=== PATIENT | female | born 2000 | race African-American/Black ===

== ENCOUNTER 2022-10-09 21:16 | Observation (INO) ==
[2022-10-09] MEDS ORDERED: SODIUM CHLORIDE 0.9% 1000ML 1,000 ML IV SCH (22:30)
--- NOTE | 2022-10-09 22:51 | Emergency Department Note ---
Impression & Plan Ectopic , Abnormal human chorionic gonadotropin (hCG) ED Provider Note CHIEF COMPLAINT: Positive test, negative outpatient ultrasound for IUP HISTORY OF PRESENT ILLNESS: This 22-year-old female patient presents to the emergency department via private vehicle for evaluation after positive outpatient test with no IUP identified on outpatient ultrasound. Georgina holly was at the resource center here in [place] earlier today. She states she had a positive test on Thursday. The patient denies any symptoms including breast tenderness or soreness, fatigue, nausea, vomiting, or others. The patient states that she has not had any abdominal or pelvic cramping or spotting. She states last menstrual period was 08/11/2022 which was normal. She states she did have some abnormal spotting about a month ago, but did not think much of that. Patient does note history of chlamydia in January and states she and her partners were treated. 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 Patient denies any complaints at this time. She does not have any pain, cramping, or bleeding. REVIEW OF SYSTEMS: A 10 system review of systems was performed with positives and pertinent negatives listed in the history of present illness. All other systems were reviewed and are negative. ALLERGIES: None PHYSICAL EXAM: VITALS: Vitals are noted on the nurse's note and reviewed by myself. Vital signs stable. GENERAL: This is a 22-year-old female, in no acute distress, nondiaphoretic, well-developed well-nourished. SKIN: The skin was without rashes, erythema, edema, or bruising. There is no tenting of the skin. Capillary refill less than 2 seconds. HEAD: Normocephalic atraumatic. EYES: Conjunctivae without injection, sclerae without icterus. NECK: Supple without nuchal rigidity. No lymphadenopathy. No JVD. HEART: Regular rate and rhythm without murmurs gallops or rubs. LUNGS: Clear to auscultation bilaterally without wheezes, rales or rhonchi. No retractions or accessory muscle use. ABDOMEN: Positive bowel sounds x 4. Soft, nontender, without masses or organomegaly. Villegas sign negative. No guarding or rebound tenderness. No CVA tenderness bilaterally. MUSCULOSKELETAL: No muscle atrophy, erythema, or edema noted. Full range of motion without joint tenderness in all extremities. No tenderness to palpation. Normal gait. Strength 5/5 throughout. NEURO: Patient was alert and oriented to person place and time. No focal neurological deficits. An order was placed for continuous equipment monitor phototypesetting. The monitor showed a sinus tachycardia at a ventricular rate of 101 bpm, per my interpretation. EMERGENCY DEPARTMENT COURSE: The patient was seen and evaluated as above. The patient is not experiencing any abdominal pain, cramping, or vaginal bleeding. She is also not experiencing any symptoms. IV access was obtained, labs drawn. Labs were reviewed. There is no leukocytosis, anemia, thrombocytopenia. INR 1.0. Renal, hepatic function and electrolytes without significant abnormality. hCG 413. Urinalysis negative for blood. Does appear to be contaminated specimen with greater than 50,000 epithelial cells and 1+ bacteria. Ultrasound was completed and reviewed by myself and radiologist as noted. I did speak with Dr. Coelho, radiologist who reviewed the study. She is concerned for a left ruptured ectopic . Given this finding, I did contact Dr. Garcia, unassigned [employer]ER on-call. She did come to evaluate the patient. She will admit the patient to her service for monitoring. Unclear whether this is truly a ruptured ectopic given the patient's lack of pain and bleeding as well as normal H&H. Please see her dictation regarding ongoing management, care, and final disposition of this patient. Differential diagnosis includes intrauterine , ectopic , molar , ovarian torsion, ovarian cyst, malignancy, among others I attest that I have personally reviewed the patient's current medication list. Patient was found to have normal blood pressure on screening and does not requir e follow-up. The chart was completed utilizing [employer] Speech voice recognition software. Grammatical errors, random word insertions, pronoun errors, and incomplete sentences are an occasional consequence of this system due to software limitations, ambient noise, and hardware issues. Any formal questions or concerns about the content, text, or information contained within the body of this dictation should be directly addressed to the provider for clarification. Past Med/Surg History Medical History Chlamydia Social History Smoking Status: Current some day smoker Preferred Language: Bel[place]an Feels Safe at Home: Yes Allergies Allergies Allergy/AdvReac Type Severity Reaction Status Date / Time No Known Allergies Allergy Unverified 10/09/22 22:10 Home Meds Home Medications Medication Instructions Recorded Confirmed No Known Home Medications 10/09/22 10/09/22 Results & Data (ED) Vital Signs Vital Signs - 24 hr 10/09/22 21:21 10/09/22 23:00 10/10/22 01:17 Temperature 36.7 C Temperature Source Temporal Artery Scan Pulse Rate 101 H Pulse Rate [Radial] 88 Respiratory Rate 18 16 Respiratory Effort / Characteristics Non-Labored Spontaneous Non-Labored Spontaneous Respiratory Depth Normal Normal Respiratory Pattern Regular Blood Pressure 129/75 Blood Pressure [Right Arm] 122/68 Blood Pressure Mean 93 Blood Pressure Mean [Right Arm] 86 Pulse Oximetry 100 98 97 Oxygen Delivery Method Room Air Room Air Room Air Sepsis Recent Fever Within 48 Hours No Sepsis New/Unexplained Change in Mental Status No Sepsis Action Taken by Nursing No Action Required 10/10/22 02:38 10/10/22 02:38 10/10/22 03:00 Temperature Temperature Source Pulse Rate Pulse Rate [Radial] 118 H 108 H Respiratory Rate 17 20 Respiratory Effort / Characteristics Non-Labored Spontaneous Non-Labored Spontaneous Respiratory Depth Normal Normal Respiratory Pattern Regular Regular Blood Pressure Blood Pressure [Right Arm] 127/87 127/78 Blood Pressure Mean Blood Pressure Mean [Right Arm] 100 94 Pulse Oximetry 100 100 100 Oxygen Delivery Method Room Air Room Air Room Air Sepsis Recent Fever Within 48 Hours Sepsis New/Unexplained Change in Mental Status Sepsis Action Taken by Nursing Laboratory Data 10/09/22 22:50 10/09/22 22:50 Lab Results 10/09/22 10/09/22 10/09/22 Range/Units 22:45 22:50 22:50 WBC 6.91 (4.8-10.8) K/ul RBC 4.54 (4.20-5.40) M/uL Hgb 12.4 (12.0-16.0) g/dl Hct 36.9 L (37.0-47.0) % MCV 81.3 (80.0-100.0) fL MCH 27.3 (25.0-34.0) pg MCHC 33.6 (32.0-36.0) g/dL RDW Std Deviation 38.1 (36.4-46.3) fL RDW Coeff of Yana 13.0 (11.5-14.5) % Plt Count 273 (130-400) K/uL MPV 9.9 (9.4-12.4) fL Neutrophils % (Manual) 46 % Lymphocytes % (Manual) 38 % Monocytes % (Manual) 4 % Neutrophils # (Manual) 3.18 (1.40-6.50) K/uL Total Absolute Neuts 3.18 (1.4-6.5) K/uL Lymphocytes # (Manual) 2.63 (1.2-3.4) K/uL Total Abs Lymphocytes 3.46 H (1.2-3.4) K/uL Monocytes # (Manual) 0.28 (0.11-0.59) K/uL Large Granular Lymphs 12 % # Lrg Granular Lymphs 0.83 K/uL PT 10.9 (9.0-12.0) Seconds INR 1.0 (0.9-1.1) APTT 24.8 (21.0-31.0) Seconds PTT Ratio 0.9 Sodium (136-145) mmol/L Potassium (3.5-5.1) mmol/L Chloride (98-107) mmol/L Carbon Dioxide (21-32) mmol/L Anion Gap (3-11) BUN (6-23) mg/dl Creatinine (0.6-1.2) mg/dl Est Cr Clr Drug Dosing ml/min Est GFR ( Amer) ml/min Est GFR (Non-Af Amer) ml/min BUN/Creatinine Ratio (10-20) Glucose (70-99(Fasting)) mg/dl Calcium (8.6-10.3) mg/dl Total Bilirubin (0.2-1.0) mg/dl AST (13-39) U/L ALT (7-52) U/L Alkaline Phosphatase (34-104) U/L Total Protein (6.0-8.3) gm/dl Albumin (3.4-5.0) gm/dl Globulin (2.5-4.0) gm/dl Albumin/Globulin Ratio (0.9-2) HCG, Quant mIU/ml Urine Color Yellow Urine Appearance Cloudy A (Clear) Urine pH 7.5 (4.5-7.5) Ur Specific [place] 1.020 (1.000-1.030) Urine Protein Negative (Negative) Urine Glucose (UA) Negative (Negative) Urine Ketones Negative (Negative) Urine Blood Negative (Negative) Urine Nitrite Negative (Negative) Urine Bilirubin Negative (Negative) Urine Urobilinogen Negative (Negative) Ur Leukocyte Esterase Negative (Negative) Urine WBC (Auto) 1-5 (0-5) /hpf Urine RBC (Auto) 0-4 (0-4) /hpf U Hyaline Cast (Auto) 1-5 (0-5) /lpf U Epithel Cells (Auto) >30 H (0-5) /lpf Urine Bacteria (Auto) 1+ H (Negative) POC Ur Test (NEG) Blood Type 10/09/22 10/09/22 10/09/22 Range/Units 22:50 22:50 22:53 WBC (4.8-10.8) K/ul RBC (4.20-5.40) M/uL Hgb (12.0-16.0) g/dl Hct (37.0-47.0) % MCV (80.0-100.0) fL MCH (25.0-34.0) pg MCHC (32.0-36.0) g/dL RDW Std Deviation (36.4-46.3) fL RDW Coeff of Yana (11.5-14.5) % Plt Count (130-400) K/uL MPV (9.4-12.4) fL Neutrophils % (Manual) % Lymphocytes % (Manual) % Monocytes % (Manual) % Neutrophils # (Manual) (1.40-6.50) K/uL Total Absolute Neuts (1.4-6.5) K/uL Lymphocytes # (Manual) (1.2-3.4) K/uL Total Abs Lymphocytes (1.2-3.4) K/uL Monocytes # (Manual) (0.11-0.59) K/uL Large Granular Lymphs % # Lrg Granular Lymphs K/uL PT (9.0-12.0) Seconds INR (0.9-1.1) APTT (21.0-31.0) Seconds PTT Ratio Sodium 136 (136-145) mmol/L Potassium 3.7 (3.5-5.1) mmol/L Chloride 105 (98-107) mmol/L Carbon Dioxide 23 (21-32) mmol/L Anion Gap 8 (3-11) BUN 10 (6-23) mg/dl Creatinine 0.78 (0.6-1.2) mg/dl Est Cr Clr Drug Dosing 80.5 ml/min Est GFR ( Amer) 126.0 ml/min Est GFR (Non-Af Amer) 108.7 ml/min BUN/Creatinine Ratio 12.8 (10-20) Glucose 92 (70-99(Fasting)) mg/dl Calcium 9.5 (8.6-10.3) mg/dl Total Bilirubin 0.4 (0.2-1.0) mg/dl AST 23 (13-39) U/L ALT 23 (7-52) U/L Alkaline Phosphatase 101 (34-104) U/L Total Protein 8.0 (6.0-8.3) gm/dl Albumin 4.6 (3.4-5.0) gm/dl Globulin 3.4 (2.5-4.0) gm/dl Albumin/Globulin Ratio 1.4 (0.9-2) HCG, Quant 413 mIU/ml Urine Color Urine Appearance (Clear) Urine pH (4.5-7.5) Ur Specific [place] (1.000-1.030) Urine Protein (Negative) Urine Glucose (UA) (Negative) Urine Ketones (Negative) Urine Blood (Negative) Urine Nitrite (Negative) Urine Bilirubin (Negative) Urine Urobilinogen (Negative) Ur Leukocyte Esterase (Negative) Urine WBC (Auto) (0-5) /hpf Urine RBC (Auto) (0-4) /hpf U Hyaline Cast (Auto) (0-5) /lpf U Epithel Cells (Auto) (0-5) /lpf Urine Bacteria (Auto) (Negative) POC Ur Test POS (NEG) Blood Type 10/10/22 Range/Units 01:03 WBC (4.8-10.8) K/ul RBC (4.20-5.40) M/uL Hgb (12.0-16.0) g/dl Hct (37.0-47.0) % MCV (80.0-100.0) fL MCH (25.0-34.0) pg MCHC (32.0-36.0) g/dL RDW Std Deviation (36.4-46.3) fL RDW Coeff of Yana (11.5-14.5) % Plt Count (130-400) K/uL MPV (9.4-12.4) fL Neutrophils % (Manual) % Lymphocytes % (Manual) % Monocytes % (Manual) % Neutrophils # (Manual) (1.40-6.50) K/uL Total Absolute Neuts (1.4-6.5) K/uL Lymphocytes # (Manual) (1.2-3.4) K/uL Total Abs Lymphocytes (1.2-3.4) K/uL Monocytes # (Manual) (0.11-0.59) K/uL Large Granular Lymphs % # Lrg Granular Lymphs K/uL PT (9.0-12.0) Seconds INR (0.9-1.1) APTT (21.0-31.0) Seconds PTT Ratio Sodium (136-145) mmol/L Potassium (3.5-5.1) mmol/L Chloride (98-107) mmol/L Carbon Dioxide (21-32) mmol/L Anion Gap (3-11) BUN (6-23) mg/dl Creatinine (0.6-1.2) mg/dl Est Cr Clr Drug Dosing ml/min Est GFR ( Amer) ml/min Est GFR (Non-Af Amer) ml/min BUN/Creatinine Ratio (10-20) Glucose (70-99(Fasting)) mg/dl Calcium (8.6-10.3) mg/dl Total Bilirubin (0.2-1.0) mg/dl AST (13-39) U/L ALT (7-52) U/L Alkaline Phosphatase (34-104) U/L Total Protein (6.0-8.3) gm/dl Albumin (3.4-5.0) gm/dl Globulin (2.5-4.0) gm/dl Albumin/Globulin Ratio (0.9-2) HCG, Quant mIU/ml Urine Color Urine Appearance (Clear) Urine pH (4.5-7.5) Ur Specific [place] (1.000-1.030) Urine Protein (Negative) Urine Glucose (UA) (Negative) Urine Ketones (Negative) Urine Blood (Negative) Urine Nitrite (Negative) Urine Bilirubin (Negative) Urine Urobilinogen (Negative) Ur Leukocyte Esterase (Negative) Urine WBC (Auto) (0-5) /hpf Urine RBC (Auto) (0-4) /hpf U Hyaline Cast (Auto) (0-5) /lpf U Epithel Cells (Auto) (0-5) /lpf Urine Bacteria (Auto) (Negative) POC Ur Test (NEG) Blood Type B Positive Administered Medications Potassium Chloride/Dextrose/Sod Cl (D5w And 1/2nss + 20meq Kcl) 20 meq in 1,000 mls @ 125 mls/hr IV .Q8H SIRISHA Stop: 11/09/22 03:44 Last Admin: 10/10/22 04:02 Dose: 125 mls/hr Documented By: JOEY Discontinued Medications Sodium Chloride (Nss 1000ml) 1,000 mls @ 999 mls/hr IV .Q1H1M SIRISHA Stop: 10/09/22 23:30 Last Infusion: 10/10/22 00:38 Dose: 0 mls/hr Documented By: Admin: 10/09/22 22:56 Dose: 999 mls/hr Documented By: [facility] Imaging Data Radiologist's Impression: Ultrasound 10/09/22 22:24 CR Exam(s): US OB 1st TRIMESTER EXAM: US First Trimester , Transabdominal CLINICAL HISTORY: Reason for exam: LMP 08/11. + Preg outpt. US at "preg clinic" neg. TECHNIQUE: Real-time transabdominal obstetrical ultrasound of the maternal pelvis and a first trimester with image documentation. COMPARISON: No relevant prior studies available. FINDINGS: Gestation: No intrauterine visualized. Placenta/amniotic fluid: Cannot be adequately evaluated due to the early gestational age. Uterus/cervix: The uterus measures 6.7 x 3.7 x 4.3 cm. Thickened endometrium up to 1.7 cm. Trace fluid within the endometrium. 3 mm linear endometrial echogenic focus that distorts the endometrial line and appears vascular. Ovaries: The right ovary measures 2.2 x 1.6 x 1.2 cm. The left ovary measures 3.3 x 1.8 x 3.1 cm. 2.2 cm left ovarian corpus luteum. In the left adnexa, 1.1 cm round somewhat echogenic vascular structure between the uterus and left ovary. Blood flow visualized in both ovaries. Free fluid: Complex free fluid superior to the uterus, in the cul-de- sac and right adnexa. IMPRESSION: 1. No intrauterine visualized. 2. In the left adnexa, 1.1 cm round somewhat echogenic vascular structure between the uterus and left ovary. Complex free fluid superior to the uterus, in the cul-de-sac and right adnexa. Raises possibility of ruptured ectopic . 3. Thickened endometrium. 3 mm linear endometrial echogenic focus that distorts the endometrial line and appears vascular. Unclear etiology. Consider follow-up ultrasound/sonohysterogram/MRI. Communications: 10/10/22 01:37 Call Doctor Regarding Ectopic , called Dr. Marizol William on 10/10 01:37 (-04:00) Electronically signed by: Caty Coelho M.D. 10/10/22 01:42 AM Discharge Plan Visit Data Chief Complaint: Referred by Doctor Stated Complaint: REF BY DOC,CYST ED Provider: Fritz Seay ED Midlevel Provider: Marizol William Discharge Problem: Ectopic , Abnormal human chorionic gonadotropin (hCG) Forms Stand Alone Forms: [employer] Prescriptions Prescriptions: No Action No Known Home Medications Referrals Referrals: PCP,NO [Primary Care Provider] -
[2022-10-09 23:17] LABS: Hematocrit (blood only) 36.9 % (37.0-47.0); Hemoglobin 12.4 g/dl (12.0-16.0); Mean Corpuscular Hemoglobin 27.3 pg (25.0-34.0); Mean Corpuscular Hgb Conc 33.6 g/dL (32.0-36.0); Mean Corpuscular Volume 81.3 fL (80.0-100.0); Mean Platelet Volume 9.9 fL (9.4-12.4); Platelet Count 273 K/uL (130-400); RDW Standard Deviation 38.1 fL (36.4-46.3); Red Blood Count 4.54 M/uL (4.20-5.40); White Blood Count 6.91 K/ul (4.8-10.8)
[2022-10-09 23:25] LABS: Appearance Urine Cloudy (Clear); Bacteria Urine Automated 1+ (Negative); Bilirubin Urine Negative (Negative); Blood Urine Negative (Negative); Color Urine Yellow; Epithelial Cell Urine Auto >30 /lpf (0-5); Glucose Urine UA Negative (Negative); Ketones Urine Negative (Negative); Leukocyte Esterase Urine Negative (Negative); Nitrite Urine Negative (Negative); Protein Urine Negative (Negative); RBC Urine Automated 0-4 /hpf (0-4); Urobilinogen Urine Negative (Negative); pH Urine 7.5 (4.5-7.5)
[2022-10-09 23:32] LABS: Albumin Globulin Ratio 1.4 (0.9-2); Albumin Level 4.6 gm/dl (3.4-5.0); BUN Creatinine Ratio 12.8 (10-20); Bilirubin,Total 0.4 mg/dl (0.2-1.0); Calcium 9.5 mg/dl (8.6-10.3); Creatinine Clr Calc Pharmacy 80.5 ml/min; Est GFR (Non-African American) 108.7 ml/min; Globulin 3.4 gm/dl (2.5-4.0); Potassium 3.7 mmol/L (3.5-5.1)
[2022-10-09 23:51] LABS: ALC (manual) 3.46 K/uL (1.2-3.4); ANC (manual) 3.18 K/uL (1.4-6.5); Large Granular Lymph # (manua 0.83 K/uL; Large Granular Lymph % (manual) 12 %; Lymphocytes # (manual) 2.63 K/uL (1.2-3.4); Lymphocytes % (manual) 38 %; Monocytes # (manual) 0.28 K/uL (0.11-0.59); Monocytes % (manual) 4 %; Neutrophils # (manual) 3.18 K/uL (1.40-6.50); Neutrophils % (manual) 46 %
[2022-10-09 23:52] LABS: Partial Thromboplastin Ratio 0.9; Partial Thromboplastin Time 24.8 Seconds (21.0-31.0); Prothrombin Time 10.9 Seconds (9.0-12.0)
--- NOTE | 2022-10-10 01:43 | Ultrasound Report ---
Exam(s): US OB 1st TRIMESTER EXAM: US First Trimester , Transabdominal CLINICAL HISTORY: Reason for exam: LMP 08/11. + Preg outpt. US at "preg clinic" neg. TECHNIQUE: Real-time transabdominal obstetrical ultrasound of the maternal pelvis and a first trimester with image documentation. COMPARISON: No relevant prior studies available. FINDINGS: Gestation: No intrauterine visualized. Placenta/amniotic fluid: Cannot be adequately evaluated due to the early gestational age. Uterus/cervix: The uterus measures 6.7 x 3.7 x 4.3 cm. Thickened endometrium up to 1.7 cm. Trace fluid within the endometrium. 3 mm linear endometrial echogenic focus that distorts the endometrial line and appears vascular. Ovaries: The right ovary measures 2.2 x 1.6 x 1.2 cm. The left ovary measures 3.3 x 1.8 x 3.1 cm. 2.2 cm left ovarian corpus luteum. In the left adnexa, 1.1 cm round somewhat echogenic vascular structure between the uterus and left ovary. Blood flow visualized in both ovaries. Free fluid: Complex free fluid superior to the uterus, in the cul-de- sac and right adnexa. IMPRESSION: 1. No intrauterine visualized. 2. In the left adnexa, 1.1 cm round somewhat echogenic vascular structure between the uterus and left ovary. Complex free fluid superior to the uterus, in the cul-de-sac and right adnexa. Raises possibility of ruptured ectopic . 3. Thickened endometrium. 3 mm linear endometrial echogenic focus that distorts the endometrial line and appears vascular. Unclear etiology. Consider follow-up ultrasound/sonohysterogram/MRI. Communications: 10/10/22 01:37 Call Doctor Regarding Ectopic , called Dr. Marizol William on 10/10 01:37 (-04:00) Electronically signed by: Caty Coelho M.D. 10/10/22 01:42 AM
[2022-10-10] MEDS ORDERED: ZOLPIDEM TARTRATE 5 MG TAB PO PRN (02:28)
[2022-10-10] MEDS ORDERED: ONDANSETRON INJ 2 MG/ML 2 ML VIAL IV PRN (02:28)
--- NOTE | 2022-10-10 02:52 | History & Physical Report ---
Date of Service October 10, 2022 Assessment & Plan (1) Abnormal human chorionic gonadotropin (hCG): Plan: 22-year-old with LMP of August 11 and beta-hCG of 416, presenting today for work-up for ectopic , Vital signs stable afebrile, Clinically stable with no complaints no pelvic pain, Pelvic exam is normal with no tenderness, Ultrasound is suspicious for ectopic , Plan to admit for observation, frequent vital signs, repeat H&H and possible haleigh olga if needed, See HPI for details, All questions were answered. (2) Ectopic : History of Present Illness Primary Care Provider: NO PCP Patient is a 22-year-old G1, P0 with LMP of August 11 and spotting in August who found out she was by home urine testing on October 06. She went to resource center yesterday where repeat urine test was positive. She had ultrasound which showed no IUP and was sent to the ER for further evaluation. Patient has no complaints. She denies vaginal bleeding, spotting, she denies pelvic pain, abdominal pain, discomfort, nausea or vomiting, dizziness or lightheadedness. She has been sexually active and denies any pain during intercourse. Last intercourse was 2 days ago with no discomfort. She has a history of chlamydia in February and she was treated and tested negative x2 in [place] where her [facility] is. When she came here her vital signs were stable. H&H is stable. Pelvic ultrasound showed no IUP and no free fluid in the pelvis and the adnexa suspicious for ectopic . I called the radiologist and spoke with her who stated that the fluid is minimal to moderate in amount. Discussed the findings with her and suspicious ultrasound findings for ectopic . Discussed in details about ectopic , what to expect, possible intra- abdominal bleeding from ruptured fallopian tube or ovary, blood loss. Discussed options of surgical management with removal of the abdominal blood clots and most likely salpingectomy. Understands risks of anesthesia and surgery. Being asymptomatic and stable VS and H&H, recommended observation the hospital, with frequent vital signs and repeat H&H. Discussed other option of doing surgery if suspect more bleeding. She understands all and accepts to stay for observation at [facility] floor. All questions were answered. Allergies Allergy/AdvReac Type Severity Reaction Status Date / Time No Known Allergies Allergy Unverified 10/09/22 22:10 Home Medications Medication Instructions Recorded Confirmed Type No Known Home Medications 10/09/22 10/09/22 History Patient History Social History Smoking Status: Current some day smoker Preferred Language: Guinean Feels Safe at Home: Yes Review of Systems as per Subjective / HPI Physical Exam Constitutional: WD/WN, vitals as above well developed, well groomed and comfortable Gastrointestinal (Abdomen): normal bowel sounds, soft, nontender, no hepatosplenomegaly Genitourinary: normal external appearance Speculum/Bimanual Exam: normal bimanual exam, normal appearance of the vagina and normal appearance of the cervix No tenderness in adnexa, nor in cul-de-sac. Results & Data Vital Signs (Past 12 Hours) Vital Signs Temp Pulse Pulse Resp BP BP Pulse Ox 10/10/22 02:38 100 10/10/22 02:38 118 H 17 127/87 100 10/10/22 01:17 88 16 122/68 97 10/09/22 23:00 98 10/09/22 21:21 36.7 C 101 H 18 129/75 100 O2 Del Method 10/10/22 02:38 Room Air 10/10/22 02:38 Room Air 10/10/22 01:17 Room Air 10/09/22 23:00 Room Air 10/09/22 21:21 Room Air Laboratory Results Lab Results 10/09/22 10/09/22 10/09/22 Range/Units 22:45 22:50 22:50 WBC 6.91 (4.8-10.8) K/ul RBC 4.54 (4.20-5.40) M/uL Hgb 12.4 (12.0-16.0) g/dl Hct 36.9 L (37.0-47.0) % MCV 81.3 (80.0-100.0) fL MCH 27.3 (25.0-34.0) pg MCHC 33.6 (32.0-36.0) g/dL RDW Std Deviation 38.1 (36.4-46.3) fL RDW Coeff of Yana 13.0 (11.5-14.5) % Plt Count 273 (130-400) K/uL MPV 9.9 (9.4-12.4) fL Neutrophils % (Manual) 46 % Lymphocytes % (Manual) 38 % Monocytes % (Manual) 4 % Neutrophils # (Manual) 3.18 (1.40-6.50) K/uL Total Absolute Neuts 3.18 (1.4-6.5) K/uL Lymphocytes # (Manual) 2.63 (1.2-3.4) K/uL Total Abs Lymphocytes 3.46 H (1.2-3.4) K/uL Monocytes # (Manual) 0.28 (0.11-0.59) K/uL Large Granular Lymphs 12 % # Lrg Granular Lymphs 0.83 K/uL PT 10.9 (9.0-12.0) Seconds INR 1.0 (0.9-1.1) APTT 24.8 (21.0-31.0) Seconds PTT Ratio 0.9 Sodium (136-145) mmol/L Potassium (3.5-5.1) mmol/L Chloride (98-107) mmol/L Carbon Dioxide (21-32) mmol/L Anion Gap (3-11) BUN (6-23) mg/dl Creatinine (0.6-1.2) mg/dl Est Cr Clr Drug Dosing ml/min Est GFR ( Amer) ml/min Est GFR (Non-Af Amer) ml/min BUN/Creatinine Ratio (10-20) Glucose (70-99(Fasting)) mg/dl Calcium (8.6-10.3) mg/dl Total Bilirubin (0.2-1.0) mg/dl AST (13-39) U/L ALT (7-52) U/L Alkaline Phosphatase (34-104) U/L Total Protein (6.0-8.3) gm/dl Albumin (3.4-5.0) gm/dl Globulin (2.5-4.0) gm/dl Albumin/Globulin Ratio (0.9-2) HCG, Quant mIU/ml Urine Color Yellow Urine Appearance Cloudy A (Clear) Urine pH 7.5 (4.5-7.5) Ur Specific [place] 1.020 (1.000-1.030) Urine Protein Negative (Negative) Urine Glucose (UA) Negative (Negative) Urine Ketones Negative (Negative) Urine Blood Negative (Negative) Urine Nitrite Negative (Negative) Urine Bilirubin Negative (Negative) Urine Urobilinogen Negative (Negative) Ur Leukocyte Esterase Negative (Negative) Urine WBC (Auto) 1-5 (0-5) /hpf Urine RBC (Auto) 0-4 (0-4) /hpf U Hyaline Cast (Auto) 1-5 (0-5) /lpf U Epithel Cells (Auto) >30 H (0-5) /lpf Urine Bacteria (Auto) 1+ H (Negative) POC Ur Test (NEG) Blood Type 10/09/22 10/09/22 10/09/22 Range/Units 22:50 22:50 22:53 WBC (4.8-10.8) K/ul RBC (4.20-5.40) M/uL Hgb (12.0-16.0) g/dl Hct (37.0-47.0) % MCV (80.0-100.0) fL MCH (25.0-34.0) pg MCHC (32.0-36.0) g/dL RDW Std Deviation (36.4-46.3) fL RDW Coeff of Yana (11.5-14.5) % Plt Count (130-400) K/uL MPV (9.4-12.4) fL Neutrophils % (Manual) % Lymphocytes % (Manual) % Monocytes % (Manual) % Neutrophils # (Manual) (1.40-6.50) K/uL Total Absolute Neuts (1.4-6.5) K/uL Lymphocytes # (Manual) (1.2-3.4) K/uL Total Abs Lymphocytes (1.2-3.4) K/uL Monocytes # (Manual) (0.11-0.59) K/uL Large Granular Lymphs % # Lrg Granular Lymphs K/uL PT (9.0-12.0) Seconds INR (0.9-1.1) APTT (21.0-31.0) Seconds PTT Ratio Sodium 136 (136-145) mmol/L Potassium 3.7 (3.5-5.1) mmol/L Chloride 105 (98-107) mmol/L Carbon Dioxide 23 (21-32) mmol/L Anion Gap 8 (3-11) BUN 10 (6-23) mg/dl Creatinine 0.78 (0.6-1.2) mg/dl Est Cr Clr Drug Dosing 80.5 ml/min Est GFR ( Amer) 126.0 ml/min Est GFR (Non-Af Amer) 108.7 ml/min BUN/Creatinine Ratio 12.8 (10-20) Glucose 92 (70-99(Fasting)) mg/dl Calcium 9.5 (8.6-10.3) mg/dl Total Bilirubin 0.4 (0.2-1.0) mg/dl AST 23 (13-39) U/L ALT 23 (7-52) U/L Alkaline Phosphatase 101 (34-104) U/L Total Protein 8.0 (6.0-8.3) gm/dl Albumin 4.6 (3.4-5.0) gm/dl Globulin 3.4 (2.5-4.0) gm/dl Albumin/Globulin Ratio 1.4 (0.9-2) HCG, Quant 413 mIU/ml Urine Color Urine Appearance (Clear) Urine pH (4.5-7.5) Ur Specific [place] (1.000-1.030) Urine Protein (Negative) Urine Glucose (UA) (Negative) Urine Ketones (Negative) Urine Blood (Negative) Urine Nitrite (Negative) Urine Bilirubin (Negative) Urine Urobilinogen (Negative) Ur Leukocyte Esterase (Negative) Urine WBC (Auto) (0-5) /hpf Urine RBC (Auto) (0-4) /hpf U Hyaline Cast (Auto) (0-5) /lpf U Epithel Cells (Auto) (0-5) /lpf Urine Bacteria (Auto) (Negative) POC Ur Test POS (NEG) Blood Type 10/10/22 Range/Units 01:03 WBC (4.8-10.8) K/ul RBC (4.20-5.40) M/uL Hgb (12.0-16.0) g/dl Hct (37.0-47.0) % MCV (80.0-100.0) fL MCH (25.0-34.0) pg MCHC (32.0-36.0) g/dL RDW Std Deviation (36.4-46.3) fL RDW Coeff of Yana (11.5-14.5) % Plt Count (130-400) K/uL MPV (9.4-12.4) fL Neutrophils % (Manual) % Lymphocytes % (Manual) % Monocytes % (Manual) % Neutrophils # (Manual) (1.40-6.50) K/uL Total Absolute Neuts (1.4-6.5) K/uL Lymphocytes # (Manual) (1.2-3.4) K/uL Total Abs Lymphocytes (1.2-3.4) K/uL Monocytes # (Manual) (0.11-0.59) K/uL Large Granular Lymphs % # Lrg Granular Lymphs K/uL PT (9.0-12.0) Seconds INR (0.9-1.1) APTT (21.0-31.0) Seconds PTT Ratio Sodium (136-145) mmol/L Potassium (3.5-5.1) mmol/L Chloride (98-107) mmol/L Carbon Dioxide (21-32) mmol/L Anion Gap (3-11) BUN (6-23) mg/dl Creatinine (0.6-1.2) mg/dl Est Cr Clr Drug Dosing ml/min Est GFR ( Amer) ml/min Est GFR (Non-Af Amer) ml/min BUN/Creatinine Ratio (10-20) Glucose (70-99(Fasting)) mg/dl Calcium (8.6-10.3) mg/dl Total Bilirubin (0.2-1.0) mg/dl AST (13-39) U/L ALT (7-52) U/L Alkaline Phosphatase (34-104) U/L Total Protein (6.0-8.3) gm/dl Albumin (3.4-5.0) gm/dl Globulin (2.5-4.0) gm/dl Albumin/Globulin Ratio (0.9-2) HCG, Quant mIU/ml Urine Color Urine Appearance (Clear) Urine pH (4.5-7.5) Ur Specific [place] (1.000-1.030) Urine Protein (Negative) Urine Glucose (UA) (Negative) Urine Ketones (Negative) Urine Blood (Negative) Urine Nitrite (Negative) Urine Bilirubin (Negative) Urine Urobilinogen (Negative) Ur Leukocyte Esterase (Negative) Urine WBC (Auto) (0-5) /hpf Urine RBC (Auto) (0-4) /hpf U Hyaline Cast (Auto) (0-5) /lpf U Epithel Cells (Auto) (0-5) /lpf Urine Bacteria (Auto) (Negative) POC Ur Test (NEG) Blood Type B Positive
[2022-10-10] MEDS ORDERED: D5W AND 1/2NSS + 20MEQ KCL 20 MEQ/1,000 ML BAG IV SCH (03:45)
[2022-10-10 06:24] LABS: Basophils # (auto) 0.03 K/uL (0.00-0.20); Basophils % (auto) 0.5 %; Hematocrit (blood only) 33.9 % (37.0-47.0); Hemoglobin 11.3 g/dl (12.0-16.0); Immature Granulocytes # (auto) 0.01 K/uL (0.01-0.20); Immature Granulocytes % (auto) 0.2 %; Lymphocytes # (auto) 2.17 K/uL (1.20-3.40); Lymphocytes % (auto) 33.7 %; Mean Corpuscular Hgb Conc 33.3 g/dL (32.0-36.0); Mean Corpuscular Volume 80.9 fL (80.0-100.0); Mean Platelet Volume 10.2 fL (9.4-12.4); Monocytes # (auto) 0.36 K/uL (0.11-0.59); Monocytes % (auto) 5.6 %; Neutrophils # (auto) 3.86 K/uL (1.40-6.50); Platelet Count 249 K/uL (130-400); RDW Coefficient of Variation 13.2 % (11.5-14.5); RDW Standard Deviation 37.7 fL (36.4-46.3); Red Blood Count 4.19 M/uL (4.20-5.40); White Blood Count 6.43 K/ul (4.8-10.8)
--- NOTE | 2022-10-10 10:14 | Progress Note ---
Date of Service October 10, 2022 Assessment & Plan (1) Ectopic : Plan: Pt is s/p ectopic completely asymptomatic No abd pain, bleeding or discomfort sono is suspicious for ectopic but titers are in 400's Plan Discussed possible ectopic vrs early IUP gestation with pt We have agreed to do the ff 1. d/c home with ectopic precautions 2. HCG at [facility] on Thursday10/13/22 AM 3. Repeat us at [facility] on Thursday10/14/22 4. Call offcie on Thursday so we can discuss tx and management Pt has agreed to plan and tx above Admission and Anticipated Discharge Date Admission Date: October 10, 2022 Results & Data Vital Signs (Past 12 Hours) Vital Signs Temp Pulse Pulse Resp BP BP Pulse Ox 10/10/22 08:00 37 C 90 20 101/66 10/10/22 05:20 36.7 C 140 H 18 101/67 100 10/10/22 03:00 108 H 20 127/78 100 10/10/22 02:38 100 10/10/22 02:38 118 H 17 127/87 100 10/10/22 01:17 88 16 122/68 97 10/09/22 23:00 98 O2 Del Method 10/10/22 08:00 Room Air 10/10/22 05:20 Room Air 10/10/22 03:00 Room Air 10/10/22 02:38 Room Air 10/10/22 02:38 Room Air 10/10/22 01:17 Room Air 10/09/22 23:00 Room Air
--- NOTE | 2022-10-10 10:22 | Discharge Summary ---
Date of Service October 10, 2022 Admission HPI Per Admitting Provider Patient is a 22-year-old G1, P0 with LMP of August 11 and spotting in August who found out she was by home urine testing on October 06. She went to resource center yesterday where repeat urine test was positive. She had ultrasound which showed no IUP and was sent to the ER for further evaluation. Patient has no complaints. She denies vaginal bleeding, spotting, she denies pelvic pain, abdominal pain, discomfort, nausea or vomiting, dizziness or lightheadedness. She has been sexually active and denies any pain during intercourse. Last intercourse was 2 days ago with no discomfort. She has a history of chlamydia in February and she was treated and tested negative x2 in [place] where her [facility] is. When she came here her vital signs were stable. H&H is stable. Pelvic ultrasound showed no IUP and no free fluid in the pelvis and the adnexa suspicious for ectopic . I called the radiologist and spoke with her who stated that the fluid is minimal to moderate in amount. Discussed the findings with her and suspicious ultrasound findings for ectopic . Discussed in details about ectopic , what to expect, possible intra- abdominal bleeding from ruptured fallopian tube or ovary, blood loss. Discussed options of surgical management with removal of the abdominal blood clots and most likely salpingectomy. Understands risks of anesthesia and surgery. Being asymptomatic and stable VS and H&H, recommended observation the hospital, with frequent vital signs and repeat H&H. Discussed other option of doing surgery if suspect more bleeding. She understands all and accepts to stay for observation at [facility] floor. All questions were answered. Discharge Data Consultations 10/10/22 02:05 Consult Obstetrics Stat 10/10/22 02:32 ED Decision to Admit Stat Discharge Instructions f/u at [facility] office for BHCG, pelvic sono and management plan
== END 2022-10-10 12:40 | disposition home or self-care (01) ==
LOC: ED 21:16 → 4E1 21:16